=== PATIENT | male | born 1995 ===

== ENCOUNTER 2017-02-17 00:04 | Emergency (ER) | payer SELFPAY ==
[~2017-02-17] VITALS: Ht 162.6 cm; Wt 50.0 kg
[2017-02-17 00:08] VITALS: Ht 162.6 cm; Wt 50.0 kg
[2017-02-17] MEDS ORDERED: LORAZEPAM 2 MG INJ IM ONE (00:30)
[2017-02-17 00:49] LABS: BASOPHILS % 0.5 % (0.0-2.0); EOSINOPHILS # 0.1 10^3/ul (0.0-0.5); EOSINOPHILS % 1.2 % (0.0-7.0); HEMATOCRIT 41.4 % (42.0-52.0); LYMPHOCYTES # 2.4 10^3/ul (0.8-2.9); LYMPHOCYTES % 36.3 % (18.0-55.0); MEAN CORPUSCULAR HGB CONC 33.8 g/dl (32.0-37.0); MEAN CORPUSCULAR VOLUME 85.9 fl (72.0-104.0); MEAN PLATELET VOLUME 10.3 fl (7.4-10.4); MONOCYTE # 0.4 10^3/ul (0.3-0.9); MONOCYTES % 6.6 % (0.0-13.0); NEUTROPHIL # 3.6 10^3/ul (1.6-7.5); NEUTROPHILS % 55.1 % (30.0-74.0); PLATELET COUNT 220 10^3/UL (140-415); RED BLOOD COUNT 4.82 10^6/ul (4.70-6.10); WHITE BLOOD COUNT 6.5 10^3/ul (4.8-10.8)
[2017-02-17 01:22] LABS: ALBUMIN 4.4 g/dl (3.3-4.9); ALBUMIN/GLOBULIN RATIO 1.33; CALCIUM 9.6 mg/dl (8.4-10.2); CREATININE 0.7 mg/dl (0.61-1.24); POTASSIUM 3.2 mmol/L (3.5-5.1); TOTAL PROTEIN 7.7 g/dl (6.1-8.1)
--- NOTE | 2017-02-17 04:06 | ERD ---
ER Documentation Chief Complaint Date/Time DATE: 02/17/17 TIME: 04:05 Chief Complaint JAE CHOUDHARY, ETOH intoxication, had "drinks in the bar & took Xanax" HPI 21-year-old male brought in by ambulance and police after he was found intoxicated. He admits to drinking alcohol tonight but is not answering questions appropriately. He is unable to tell us his exact age and name. He did admit to the nurse that he took Xanax yesterday as well. Otherwise he has no physical complaints and is not compliant with answering questions. ROS Limited secondary to intoxication Medications Home Meds Unable to Obtain Active Prescriptions or Reported Meds Allergies Allergies: Coded Allergies: No Known Allergy (Unverified , 02/17/17) PMhx/Soc Medical and Surgical Hx: pt denies Medical Hx, pt denies Surgical Hx Hx Alcohol Use: Yes Hx Substance Use: Yes Smoking Status: Never smoker FmHx Family History: other (Unable to obtain) Physical Exam Vitals Vital Signs Date Time Temp Pulse Resp B/P Pulse Ox O2 Delivery O2 Flow Rate FiO2 02/17/17 06:34 98.0 70 20 118/68 99 Room Air 02/17/17 04:43 68 16 105/59 99 Room Air 02/17/17 02:44 97.8 61 18 109/53 98 Room Air 02/17/17 00:08 98.8 88 18 108/67 96 Physical Exam Const: Appears intoxicated, somnolent but arousable, in no apparent distress Head: Atraumatic Eyes: Normal Conjunctiva, PERRLA ENT: Normal External Ears, Nose and Mouth. Neck: Full range of motion..~ No meningismus. Resp: Clear to auscultation bilaterally Cardio: Regular rate and rhythm, no murmurs Abd: Soft, non tender, non distended. Normal bowel sounds Skin: No petechiae or rashes Back: No midline or flank tenderness Ext: No cyanosis, or edema Neur: Somnolent but arousable, normal speech, moving all extremities spontaneously Psych: Normal Mood and Affect Result Diagram: 02/17/17 0030 02/17/17 003 Results 24 hrs Laboratory Tests Test 02/17/17 00:30 White Blood Count 6.510^3/ul Red Blood Count 4.8210^6/ul Hemoglobin 14.0g/dl Hematocrit 41.4% Mean Corpuscular Volume 85.9fl Mean Corpuscular Hemoglobin 29.0pg Mean Corpuscular Hemoglobin Concent 33.8g/dl Red Cell Distribution Width 13.0% Platelet Count 25150^3/UL Mean Platelet Volume 10.3fl Neutrophils % 55.1% Lymphocytes % 36.3% Monocytes % 6.6% Eosinophils % 1.2% Basophils % 0.5% Nucleated Red Blood Cells % 0.0/100WBC Neutrophils # 3.610^3/ul Lymphocytes # 2.410^3/ul Monocytes # 0.410^3/ul Eosinophils # 0.110^3/ul Basophils # 0.010^3/ul Nucleated Red Blood Cells # 0.010^3/ul Sodium Level 145mmol/L Potassium Level 3.2mmol/L Chloride Level 107mmol/L Carbon Dioxide Level 28mmol/L Anion Gap 13 Blood Urea Nitrogen 7mg/dl Creatinine 0.70mg/dl Glucose Level 95mg/dl Calcium Level 9.6mg/dl Total Bilirubin 1.0mg/dl Direct Bilirubin 0.00mg/dl Indirect Bilirubin 1.0mg/dl Aspartate Amino Transf (AST/SGOT) 28IU/L Alanine Aminotransferase (ALT/SGPT) 37IU/L Alkaline Phosphatase 65IU/L Total Protein 7.7g/dl Albumin 4.4g/dl Globulin 3.30g/dl Albumin/Globulin Ratio 1.33 Ethyl Alcohol Level 46.0mg/dl Current Medications Medications (Trade) Dose Ordered Sig/Cassy Route PRN Reason Start Time Stop Time Status Last Admin Dose Admin Lorazepam (Ativan) 1 mg ONCE ONCE IM 02/17/17 00:30 02/17/17 00:31 DC 02/17/17 00:35 Procedures/MDM Patients presented with altered mental status. Vitals were stable. Patient maintaining airway. Based on EMS report and exam, patients AMS is likely related to alcohol or drug intoxication. I have a low suspicion for serious metabolic or electrolyte derangement, intracranial hemorrhage, acute infectious process, meningitis/encephalitis, or CVA. Patient was observed for several hours in the ER with improvement of mental status. Upon discharge, patient was ambulating with a steady gait and tolerating food. He did admit to drinking last night with his friends. He denies any drug use. He is alert and oriented and appropriate for discharge at this time. Departure Diagnosis: Primary Impression: Alcoholic intoxication Complication of substance-induced condition: with unspecified complication Qualified Code: F10.929 - Alcoholic intoxication with complication Condition: Stable EKENZO CHAPMAN MD Feb 17, 2017 04:06
[2017-02-17 06:34] VITALS: BP 118/68; PULSE 70; RESP 20; TEMP 98
== END 2017-02-17 07:01 | disposition home or self-care (01) ==
LOC: E/R 00:04
DX: F10.929 Alcohol use, unspecified with intoxication, unspecified (principal); R40.2142 Coma scale, eyes open, spontaneous, at arrival to emergency department; R40.2362 Coma scale, best motor response, obeys commands, at arrival to emergency department; R40.2252 Coma scale, best verbal response, oriented, at arrival to emergency department
CPT/HCPCS: 36415; 80053; 80306; 85025; 96372; 99284; J2060